=== PATIENT | female | born 1940 | race Native Hawaiian/Other Pacific Islander ===

== ENCOUNTER 2021-06-10 10:35 | Outpatient (CLI) | payer MEDICARE, OTHER | END 2021-06-10 10:36 | disposition home or self-care (01) | LOC: CSHEKG 10:35 | PROVIDERS: ATTEND Nurse Practitioner Family | DX: Z01.818 Encounter for other preprocedural examination (principal) | CPT/HCPCS: 93005; 93010 ==

== ENCOUNTER 2022-07-21 08:21 | Inpatient (IN) | payer MEDICARE, OTHER ==
[2022-07-21 10:51] LABS: #Eosinphils 0.1 10x3/uL (0.0-0.5); #Monocytes 0.4 10x3/uL (0.0-1.1); #Neutrophils 8.2 10x3/uL (1.5-8.4); %Basophils 0.2 % (0.0-2.0); %Eosinophils 0.5 % (0.0-6.0); %Lymphocytes 16.4 % (18.0-47.0); %Monocytes 3.6 % (0.0-10.0); %Neutrophils 78.6 % (40.0-75.0); Hemoglobin 13.6 g/dL (12.0-15.5); Mean Corpuscular HGB CONC 33.8 g/dL (32.0-36.0); Mean Corpuscular Hemoglobin 28.5 pg (27.0-33.0); Mean Corpuscular Volume 84.3 fl (81.6-98.3); Mean Platelet Volume 8.2 fl (7.4-10.4); Platelet Count 293 10x3/uL (150-450); RBC Distribution Width 16.2 % (11.5-14.5); Red Blood Cell (RBC) Count 4.77 10x6/uL (3.90-5.03); White Blood Cell (WBC) Count 10.4 10x3/uL (3.5-10.5)
[2022-07-21 11:00] LABS: PTT 31.9 sec (22.0-33.0); Prothrombin Time 10.4 sec (9.5-12.1)
[2022-07-21 11:07] LABS: ALT (SGPT) 12 U/L (8-55); AST (SGOT) 31 U/L (5-34); Albumin 3.5 g/dL (3.4-4.8); Alkaline Phosphatase 89 U/L (40-110); Anion Gap 14 mmol/L (10-20); BUN (Urea Nitrogen) 9 mg/dL (9.8-20.1); Bilirubin, Total 0.3 mg/dL (0.2-1.2); Calc. Creatinine Clearance 0 mL/min (70-130); Calcium 8.8 mg/dL (7.8-10.44); Carbon Dioxide 28 mmol/L (23-31); Chloride 91 mmol/L (98-107); Estimated GFR 90; Globulin 3.8 g/dL (2.4-3.5); Glucose 110 mg/dL (83-110); Potassium 4.9 mmol/L (3.5-5.1); Protein, Total 7.3 g/dL (5.8-8.1); Sodium 128 mmol/L (136-145)
[2022-07-21] MEDS ORDERED: Acetaminophen 650 MG Suppository PR PRN (13:49)
[2022-07-21] MEDS ORDERED: Acetaminophen 325 MG TAB PO PRN (13:49)
[2022-07-21] MEDS ORDERED: Ondansetron ODT 4 MG TAB PO PRN (13:49)
[2022-07-21] MEDS ORDERED: Ondansetron PF 4 MG/2 ML Vial IVP PRN (13:49)
[2022-07-21] MEDS ORDERED: Dextrose 5% in Water 1,000 ML IV PRN (18:09)
[2022-07-21] MEDS ORDERED: Insulin Regular 300 UNITS/3 ML VIAL SC PRN (18:09)
[2022-07-21] MEDS ORDERED: Dextrose 50% Abboject 50 ML SYRINGE SLOW IVP PRN (18:09)
[2022-07-22 05:19] LABS: #Basophils 0.1 10x3/uL (0.0-0.2); #Eosinphils 0.1 10x3/uL (0.0-0.5); #Monocytes 0.6 10x3/uL (0.0-1.1); #Neutrophils 8.6 10x3/uL (1.5-8.4); %Basophils 0.5 % (0.0-2.0); %Eosinophils 0.5 % (0.0-6.0); %Lymphocytes 14.4 % (18.0-47.0); %Monocytes 5.4 % (0.0-10.0); %Neutrophils 78.7 % (40.0-75.0); Mean Corpuscular HGB CONC 34.4 g/dL (32.0-36.0); Mean Corpuscular Hemoglobin 28.8 pg (27.0-33.0); Mean Corpuscular Volume 83.6 fl (81.6-98.3); Mean Platelet Volume 8.6 fl (7.4-10.4); Platelet Count 330 10x3/uL (150-450); RBC Distribution Width 16.2 % (11.5-14.5); Red Blood Cell (RBC) Count 4.52 10x6/uL (3.90-5.03); White Blood Cell (WBC) Count 10.9 10x3/uL (3.5-10.5)
[2022-07-22 05:28] LABS: Anion Gap 10 mmol/L (10-20); BUN (Urea Nitrogen) 12 mg/dL (9.8-20.1); Calc. Creatinine Clearance 56 mL/min (70-130); Calcium 8.5 mg/dL (7.8-10.44); Carbon Dioxide 29 mmol/L (23-31); Chloride 95 mmol/L (98-107); Estimated GFR 93; Glucose 107 mg/dL (83-110); Potassium 4.3 mmol/L (3.5-5.1); Sodium 130 mmol/L (136-145)
[2022-07-22] MEDS ORDERED: Iopamidol 300 61% 100 ML VIAL FS ONE (12:02)
[2022-07-22] MEDS: Insulin Regular 300 UNITS/3 ML VIAL SC PRN (18:09)
[2022-07-23 03:57] LABS: #Basophils 0.1 10x3/uL (0.0-0.2); #Monocytes 0.8 10x3/uL (0.0-1.1); #Neutrophils 11.3 10x3/uL (1.5-8.4); %Basophils 0.4 % (0.0-2.0); %Eosinophils 0.3 % (0.0-6.0); %Lymphocytes 8.1 % (18.0-47.0); %Monocytes 6.2 % (0.0-10.0); %Neutrophils 84.6 % (40.0-75.0); Hemoglobin 12.7 g/dL (12.0-15.5); Mean Corpuscular HGB CONC 34.3 g/dL (32.0-36.0); Mean Corpuscular Hemoglobin 28.8 pg (27.0-33.0); Mean Corpuscular Volume 83.9 fl (81.6-98.3); Mean Platelet Volume 8.4 fl (7.4-10.4); Platelet Count 328 10x3/uL (150-450); RBC Distribution Width 16.4 % (11.5-14.5); Red Blood Cell (RBC) Count 4.41 10x6/uL (3.90-5.03); White Blood Cell (WBC) Count 13.4 10x3/uL (3.5-10.5)
[2022-07-23 04:10] LABS: Anion Gap 10 mmol/L (10-20); BUN (Urea Nitrogen) 17 mg/dL (9.8-20.1); Calc. Creatinine Clearance 52 mL/min (70-130); Calcium 8.5 mg/dL (7.8-10.44); Carbon Dioxide 30 mmol/L (23-31); Chloride 97 mmol/L (98-107); Estimated GFR 92; Glucose 126 mg/dL (83-110); Potassium 4.4 mmol/L (3.5-5.1); Sodium 133 mmol/L (136-145)
[2022-07-23] MEDS: Sodium Chloride 1 GM TAB PO SCH ×3 (09:13→20:32)
[2022-07-23] MEDS: Insulin NPH Human Isophane 100 UNIT/ML (10 ML VIAL) SC SCH (09:13)
[2022-07-23] MEDS: Insulin Regular 300 UNITS/3 ML VIAL SC PRN (12:29)
[2022-07-23] MEDS: Melatonin 3 MG TAB PO SCH (20:32)
[2022-07-24 04:05] LABS: #Eosinphils 0.1 10x3/uL (0.0-0.5); #Monocytes 0.8 10x3/uL (0.0-1.1); #Neutrophils 8.5 10x3/uL (1.5-8.4); %Basophils 0.4 % (0.0-2.0); %Eosinophils 0.7 % (0.0-6.0); %Lymphocytes 12.3 % (18.0-47.0); Hemoglobin 12.1 g/dL (12.0-15.5); Mean Corpuscular HGB CONC 33.5 g/dL (32.0-36.0); Mean Corpuscular Hemoglobin 28.6 pg (27.0-33.0); Mean Corpuscular Volume 85.3 fl (81.6-98.3); Mean Platelet Volume 8.5 fl (7.4-10.4); Platelet Count 315 10x3/uL (150-450); RBC Distribution Width 16.9 % (11.5-14.5); Red Blood Cell (RBC) Count 4.23 10x6/uL (3.90-5.03); White Blood Cell (WBC) Count 10.8 10x3/uL (3.5-10.5)
[2022-07-24 04:19] LABS: Anion Gap 12 mmol/L (10-20); BUN (Urea Nitrogen) 15 mg/dL (9.8-20.1); Calc. Creatinine Clearance 55 mL/min (70-130); Calcium 8.6 mg/dL (7.8-10.44); Carbon Dioxide 29 mmol/L (23-31); Chloride 100 mmol/L (98-107); Estimated GFR 93; Glucose 148 mg/dL (83-110); Potassium 4.4 mmol/L (3.5-5.1); Sodium 137 mmol/L (136-145)
[2022-07-24] MEDS: Insulin NPH Human Isophane 100 UNIT/ML (10 ML VIAL) SC SCH (08:44)
[2022-07-24] MEDS: Sodium Chloride 1 GM TAB PO SCH ×3 (08:44→22:34)
[2022-07-24] MEDS: Melatonin 3 MG TAB PO SCH (22:34)
[2022-07-25 04:06] LABS: #Basophils 0.1 10x3/uL (0.0-0.2); #Eosinphils 0.1 10x3/uL (0.0-0.5); #Monocytes 0.6 10x3/uL (0.0-1.1); #Neutrophils 5.1 10x3/uL (1.5-8.4); %Basophils 0.7 % (0.0-2.0); %Eosinophils 1.1 % (0.0-6.0); %Lymphocytes 16.3 % (18.0-47.0); %Monocytes 8.5 % (0.0-10.0); %Neutrophils 72.8 % (40.0-75.0); Hemoglobin 11.8 g/dL (12.0-15.5); Mean Corpuscular HGB CONC 32.7 g/dL (32.0-36.0); Mean Corpuscular Hemoglobin 28.6 pg (27.0-33.0); Mean Corpuscular Volume 87.6 fl (81.6-98.3); Mean Platelet Volume 8.7 fl (7.4-10.4); Platelet Count 324 10x3/uL (150-450); RBC Distribution Width 17.6 % (11.5-14.5); Red Blood Cell (RBC) Count 4.12 10x6/uL (3.90-5.03)
[2022-07-25 04:18] LABS: Anion Gap 11 mmol/L (10-20); BUN (Urea Nitrogen) 18 mg/dL (9.8-20.1); Calc. Creatinine Clearance 54 mL/min (70-130); Calcium 8.7 mg/dL (7.8-10.44); Carbon Dioxide 30 mmol/L (23-31); Chloride 105 mmol/L (98-107); Estimated GFR 92; Glucose 124 mg/dL (83-110); Potassium 4.6 mmol/L (3.5-5.1); Sodium 141 mmol/L (136-145)
[2022-07-25] MEDS: Insulin NPH Human Isophane 100 UNIT/ML (10 ML VIAL) SC SCH (08:05)
[2022-07-25] MEDS: Sodium Chloride 1 GM TAB PO SCH ×2 (08:05→21:31)
[2022-07-25] MEDS: Melatonin 3 MG TAB PO SCH (21:23)
[2022-07-26 03:58] LABS: Anion Gap 10 mmol/L (10-20); BUN (Urea Nitrogen) 18 mg/dL (9.8-20.1); Calc. Creatinine Clearance 58 mL/min (70-130); Calcium 8.7 mg/dL (7.8-10.44); Carbon Dioxide 31 mmol/L (23-31); Chloride 104 mmol/L (98-107); Estimated GFR 94; Glucose 111 mg/dL (83-110); Potassium 4.3 mmol/L (3.5-5.1); Sodium 141 mmol/L (136-145)
[2022-07-26] MEDS ORDERED: Rocuronium Bromide 10 MG/ML (10ML VIAL) ONE (08:00)
[2022-07-26] MEDS: Sodium Chloride 1 GM TAB PO SCH (08:27)
[2022-07-26] MEDS: Insulin NPH Human Isophane 100 UNIT/ML (10 ML VIAL) SC SCH (08:27)
[2022-07-26] MEDS ORDERED: DISCONTINUE PREVIOUS NARCOTIC PAIN MEDICATIONS AND BENZODIAZEPINES FS SCH (22:30)
[2022-07-26] MEDS ORDERED: Propofol 1,000 MG/100 ML VIAL IV PRN (22:30)
[2022-07-26] MEDS ORDERED: Morphine 2 MG/ML VIAL SLOW IVP PRN (22:30)
[2022-07-26] MEDS ORDERED: Propofol BOLUS 1,000 MG/100 ML VIAL IV PRN (22:30)
[2022-07-26] MEDS ORDERED: Lorazepam 2 MG/ML VIAL SLOW IVP PRN (22:30)
[2022-07-26] MEDS ORDERED: Fentanyl BOLUS 250 ML IVPB PRN (22:30)
[2022-07-26] MEDS ORDERED: Fentanyl 100 MCG/2 ML VIAL SLOW IVP PRN (23:27)
[2022-07-26] MEDS ORDERED: Ventilator Sedation Protocol 1 EACH FS SCH (23:30)
[2022-07-26] MEDS ORDERED: Piperacillin/Tazobactam 3.375 GM in Sodium Chloride 0.9% 100 ML IVPB SCH (23:45)
[2022-07-27] MEDS ORDERED: Dextrose 5% in Water 1,000 ML IV PRN (00:52)
[2022-07-27] MEDS ORDERED: Dextrose 50% Abboject 50 ML SYRINGE SLOW IVP PRN (00:52)
[2022-07-27] MEDS ORDERED: NOREPINEPHRINE 8 MG/250 ML-D5W 250 ML ONE (02:10)
[2022-07-27] MEDS ORDERED: NOREPINEPHRINE 8 MG/250 ML-D5W 250 ML IVPB SCH (02:15)
[2022-07-27] MEDS: FENTANYL 2,000MCG/100-0.9%NACL 100 ML IVPB SCH ×2 (02:46→22:57)
[2022-07-27] MEDS: Sodium Chloride 1 GM TAB PO SCH (03:42)
[2022-07-27] MEDS: Melatonin 3 MG TAB PO SCH (03:42)
[2022-07-27 03:56] LABS: #Basophils 0.1 10x3/uL (0.0-0.2); #Monocytes 0.6 10x3/uL (0.0-1.1); #Neutrophils 12.4 10x3/uL (1.5-8.4); %Basophils 0.4 % (0.0-2.0); %Eosinophils 0.2 % (0.0-6.0); %Lymphocytes 6.3 % (18.0-47.0); %Monocytes 4.4 % (0.0-10.0); %Neutrophils 88.4 % (40.0-75.0); Hemoglobin 12.1 g/dL (12.0-15.5); Mean Corpuscular HGB CONC 32.7 g/dL (32.0-36.0); Mean Corpuscular Hemoglobin 28.7 pg (27.0-33.0); Mean Corpuscular Volume 87.9 fl (81.6-98.3); Mean Platelet Volume 8.4 fl (7.4-10.4); Platelet Count 306 10x3/uL (150-450); RBC Distribution Width 17.9 % (11.5-14.5); Red Blood Cell (RBC) Count 4.21 10x6/uL (3.90-5.03)
[2022-07-27 04:09] LABS: Anion Gap 12 mmol/L (10-20); BUN (Urea Nitrogen) 23 mg/dL (9.8-20.1); Calc. Creatinine Clearance 48 mL/min (70-130); Calcium 8.8 mg/dL (7.8-10.44); Carbon Dioxide 29 mmol/L (23-31); Chloride 103 mmol/L (98-107); Estimated GFR 90; Glucose 152 mg/dL (83-110); Magnesium 2.1 mg/dL (1.6-2.6); Potassium 4.3 mmol/L (3.5-5.1); Sodium 140 mmol/L (136-145)
[2022-07-27 04:52] LABS: ALV-art Gradient 120.025 mmHg (0-20); Actual Bicarbonate (HCO3a) 31.2 mEq/L (22-28); Base Excess (BEa) 6.1 mEq/L (-2.0 to +3.0); CO2 Tension 47.1 mmHg (35.0-45.0); Calcium, Ionized (arterial) 1.15 mmol/L (1.12-1.30); Carboxyhemoglobin (COHb) 0.3 gm% (0.0-3.0); Critical Notified By: CP.PH; Hemoglobin (Hb) 12.5 g/dL (12.0-16.0); O2 Tension (PaO2), arterial 106.3 mmHg (> 60.0); Potassium - ABG Lab 4.2 mmol/L (3.70-5.30); Puncture Site LBA; RapidComm Collect By CP.PH; pH, Arterial 7.44 (7.35-7.45)
[2022-07-27] MEDS: Piperacillin/Tazobactam 3.375 GM in Sodium Chloride 0.9% 100 ML IVPB SCH ×2 (08:20→16:03)
[2022-07-27] MEDS: HumaLOG 300 UNITS/3 ML VIAL SC PRN (16:50)
[2022-07-27 17:12] LABS: Actual Bicarbonate (HCO3a) 32.5 mEq/L (22-28); Base Excess (BEa) 7.5 mEq/L (-2.0 to +3.0); CO2 Tension 47.7 mmHg (35.0-45.0); Calcium, Ionized (arterial) 1.16 mmol/L (1.12-1.30); Carboxyhemoglobin (COHb) 0.3 gm% (0.0-3.0); Hemoglobin (Hb) 11.4 g/dL (12.0-16.0); O2 Tension (PaO2), arterial 139.9 mmHg (> 60.0); Puncture Site LBA; pH, Arterial 7.45 (7.35-7.45)
[2022-07-27 17:18] LABS: ALV-art Gradient 85.675 mmHg (0-20)
[2022-07-28] MEDS: Piperacillin/Tazobactam 3.375 GM in Sodium Chloride 0.9% 100 ML IVPB SCH ×4 (00:01→23:44)
[2022-07-28 04:46] LABS: #Eosinphils 0.1 10x3/uL (0.0-0.5); #Monocytes 0.7 10x3/uL (0.0-1.1); #Neutrophils 9.7 10x3/uL (1.5-8.4); %Basophils 0.3 % (0.0-2.0); %Eosinophils 0.5 % (0.0-6.0); %Lymphocytes 11.5 % (18.0-47.0); %Neutrophils 81.1 % (40.0-75.0); Hemoglobin 9.8 g/dL (12.0-15.5); Mean Corpuscular HGB CONC 32.9 g/dL (32.0-36.0); Mean Corpuscular Hemoglobin 28.7 pg (27.0-33.0); Mean Corpuscular Volume 87.1 fl (81.6-98.3); Platelet Count 249 10x3/uL (150-450); RBC Distribution Width 17.9 % (11.5-14.5); Red Blood Cell (RBC) Count 3.42 10x6/uL (3.90-5.03)
[2022-07-28 04:47] LABS: Actual Bicarbonate (HCO3a) 31.6 mEq/L (22-28); Base Excess (BEa) 7.1 mEq/L (-2.0 to +3.0); CO2 Tension 44.8 mmHg (35.0-45.0); Calcium, Ionized (arterial) 1.15 mmol/L (1.12-1.30); Carboxyhemoglobin (COHb) 0.3 gm% (0.0-3.0); Critical Notified By: CP.PH; Hemoglobin (Hb) 10.4 g/dL (12.0-16.0); O2 Tension (PaO2), arterial 89.4 mmHg (> 60.0); Potassium - ABG Lab 3.8 mmol/L (3.70-5.30); Puncture Site LRA; RapidComm Collect By CP.PH; pH, Arterial 7.47 (7.35-7.45)
[2022-07-28 04:57] LABS: ALT (SGPT) 13 U/L (8-55); AST (SGOT) 23 U/L (5-34); Albumin 2.8 g/dL (3.4-4.8); Alkaline Phosphatase 60 U/L (40-110); Anion Gap 11 mmol/L (10-20); BUN (Urea Nitrogen) 21 mg/dL (9.8-20.1); Bilirubin, Total 0.4 mg/dL (0.2-1.2); Calc. Creatinine Clearance 38 mL/min (70-130); Calcium 8.5 mg/dL (7.8-10.44); Carbon Dioxide 30 mmol/L (23-31); Chloride 106 mmol/L (98-107); Estimated GFR 88; Globulin 3.2 g/dL (2.4-3.5); Glucose 177 mg/dL (83-110); Potassium 3.7 mmol/L (3.5-5.1); Sodium 143 mmol/L (136-145)
[2022-07-28] MEDS ORDERED: Rocuronium Bromide 10 MG/ML (10ML VIAL) ONE (06:22)
[2022-07-28] MEDS ORDERED: Midazolam HCl 2 mg/2 ml Vial ONE (06:28)
[2022-07-28] MEDS ORDERED: Fentanyl 100 MCG/2 ML VIAL ONE (06:30)
[2022-07-28] MEDS ORDERED: Lidocaine 1% w/Epinephrine 1:100K 30 ML VIAL ONE (06:32)
[2022-07-28] MEDS ORDERED: Ketamine 50 MG/ML (10ML VIAL) ONE (07:06)
[2022-07-28] MEDS: Pantoprazole 40 MG VIAL IVP SCH (08:44)
[2022-07-28] MEDS: FENTANYL 2,000MCG/100-0.9%NACL 100 ML IVPB SCH (12:44)
[2022-07-28] MEDS: HumaLOG 300 UNITS/3 ML VIAL SC PRN (13:06)
[2022-07-29 04:24] LABS: MDiff Complete? YES
[2022-07-29 04:32] LABS: ALT (SGPT) 14 U/L (8-55); AST (SGOT) 22 U/L (5-34); Albumin 2.8 g/dL (3.4-4.8); Alkaline Phosphatase 60 U/L (40-110); Anion Gap 11 mmol/L (10-20); BUN (Urea Nitrogen) 16 mg/dL (9.8-20.1); Bilirubin, Total 0.5 mg/dL (0.2-1.2); Calc. Creatinine Clearance 37 mL/min (70-130); Calcium 8.5 mg/dL (7.8-10.44); Carbon Dioxide 28 mmol/L (23-31); Chloride 109 mmol/L (98-107); Estimated GFR 89; Globulin 3.1 g/dL (2.4-3.5); Glucose 131 mg/dL (83-110); Potassium 3.6 mmol/L (3.5-5.1); Protein, Total 5.9 g/dL (5.8-8.1); Sodium 144 mmol/L (136-145)
[2022-07-29 04:36] LABS: Hemoglobin 9.3 g/dL (12.0-15.5); Mean Corpuscular HGB CONC 33.3 g/dL (32.0-36.0); Mean Corpuscular Hemoglobin 29.5 pg (27.0-33.0); Mean Corpuscular Volume 88.6 fl (81.6-98.3); Mean Platelet Volume 9.5 fl (7.4-10.4); Platelet Count 223 10x3/uL (150-450); RBC Distribution Width 18.4 % (11.5-14.5); Red Blood Cell (RBC) Count 3.15 10x6/uL (3.90-5.03); White Blood Cell (WBC) Count 10.6 10x3/uL (3.5-10.5)
[2022-07-29] MEDS: FENTANYL 2,000MCG/100-0.9%NACL 100 ML IVPB SCH (05:03)
[2022-07-29 05:57] LABS: Band 30 % (5-11); Lymphocytes 14 % (21-51); Monocytes 11 % (0-10); Neutrophil 45 % (42-75)
[2022-07-29 06:02] LABS: Anisocytosis SLIGHT = 6-15 cells (100X) (0-5/hpf); Hypochromia SLIGHT = 6-15 cells (100X) (0-5/hpf); Microcytosis SLIGHT = 6-15 cells (100X) (0-5/hpf); Platelet Morphology Comment Appears Adequate
[2022-07-29] MEDS: Piperacillin/Tazobactam 3.375 GM in Sodium Chloride 0.9% 100 ML IVPB SCH ×3 (08:03→23:45)
[2022-07-29] MEDS: Pantoprazole 40 MG VIAL IVP SCH (08:04)
[2022-07-29] MEDS: HumaLOG 300 UNITS/3 ML VIAL SC PRN (12:38)
[2022-07-29] MEDS: Acetaminophen 650 MG/20.3 ML UDCUP PER TUBE PRN ×2 (14:19→23:54)
[2022-07-29] MEDS ORDERED: Vancomycin HCl 500 MG in Sodium Chloride 0.9% 100 ML IVPB SCH (17:30)
[2022-07-30 04:24] LABS: Mean Corpuscular HGB CONC 32.7 g/dL (32.0-36.0); Mean Corpuscular Hemoglobin 28.8 pg (27.0-33.0); Mean Corpuscular Volume 88.1 fl (81.6-98.3); Mean Platelet Volume 9.5 fl (7.4-10.4); Platelet Count 205 10x3/uL (150-450); RBC Distribution Width 17.9 % (11.5-14.5); Red Blood Cell (RBC) Count 3.12 10x6/uL (3.90-5.03); White Blood Cell (WBC) Count 9.9 10x3/uL (3.5-10.5)
[2022-07-30 04:29] LABS: ALT (SGPT) 21 U/L (8-55); AST (SGOT) 31 U/L (5-34); Albumin 2.8 g/dL (3.4-4.8); Alkaline Phosphatase 72 U/L (40-110); Anion Gap 11 mmol/L (10-20); BUN (Urea Nitrogen) 16 mg/dL (9.8-20.1); Bilirubin, Total 0.3 mg/dL (0.2-1.2); Calc. Creatinine Clearance 45 mL/min (70-130); Calcium 8.6 mg/dL (7.8-10.44); Carbon Dioxide 28 mmol/L (23-31); Chloride 113 mmol/L (98-107); Estimated GFR 92; Globulin 3.2 g/dL (2.4-3.5); Glucose 152 mg/dL (83-110); Potassium 3.1 mmol/L (3.5-5.1); Sodium 149 mmol/L (136-145)
[2022-07-30 04:51] LABS: MDiff Complete? YES
[2022-07-30 04:55] LABS: Band 39 % (5-11); Lymphocytes 6 % (21-51); Monocytes 5 % (0-10); Neutrophil 50 % (42-75)
[2022-07-30 04:56] LABS: Anisocytosis SLIGHT = 6-15 cells (100X) (0-5/hpf); Hypochromia SLIGHT = 6-15 cells (100X) (0-5/hpf); Microcytosis SLIGHT = 6-15 cells (100X) (0-5/hpf); Platelet Morphology Comment Appears Adequate
[2022-07-30] MEDS: Vancomycin HCl 500 MG in Sodium Chloride 0.9% 100 ML IVPB SCH ×2 (08:30→20:38)
[2022-07-30] MEDS: Piperacillin/Tazobactam 3.375 GM in Sodium Chloride 0.9% 100 ML IVPB SCH ×2 (08:31→16:29)
[2022-07-30] MEDS: Pantoprazole 40 MG VIAL IVP SCH (08:32)
[2022-07-30] MEDS: HumaLOG 300 UNITS/3 ML VIAL SC PRN ×3 (13:11→21:39)
[2022-07-30] MEDS ORDERED: Haloperidol Lactate 5 MG/ML VIAL SLOW IVP SCH (15:00)
[2022-07-30] MEDS: Acetaminophen 650 MG/20.3 ML UDCUP PER TUBE PRN (15:47)
[2022-07-30] MEDS: Dextrose 5% in Water 1,000 ML IV SCH (16:29)
[2022-07-30 17:45] LABS: Bilirubin Neg (Negative); Blood, Urine 25 (Negative); Clarity Clear (Clear); Glucose, Urine (Dipstick) Normal (Negative); Ketone, Urine Negative (Negative); Leukocyte Negative (Negative); Nitrite Negative (Negative); Protein, Urine (Dipstick) 100 mg/dl (Neg-Trace); Urobilinogen Normal mg/dL (Less than 2); pH, Urine 6.5 (5.0-9.0)
[2022-07-30 17:55] LABS: CAUTI Indications for Culture Fever or rigors; WBC/HPF 0-3 HPF (0-3)
[2022-07-30 17:56] LABS: Bacteria/HPF 1+ HPF (None Seen); Squamous Epithelial 0-3 HPF (0-3)
[2022-07-30 17:58] LABS: Urine Culture Reflex No No
[2022-07-31] MEDS: Piperacillin/Tazobactam 3.375 GM in Sodium Chloride 0.9% 100 ML IVPB SCH ×4 (00:53→23:35)
[2022-07-31] MEDS: HumaLOG 300 UNITS/3 ML VIAL SC PRN ×3 (02:26→23:34)
[2022-07-31 03:31] LABS: Mean Corpuscular HGB CONC 31.8 g/dL (32.0-36.0); Mean Corpuscular Hemoglobin 28.4 pg (27.0-33.0); Mean Corpuscular Volume 89.2 fl (81.6-98.3); Mean Platelet Volume 9.8 fl (7.4-10.4); Platelet Count 234 10x3/uL (150-450); RBC Distribution Width 18.1 % (11.5-14.5); Red Blood Cell (RBC) Count 3.52 10x6/uL (3.90-5.03); White Blood Cell (WBC) Count 13.4 10x3/uL (3.5-10.5)
[2022-07-31 03:35] LABS: MDiff Complete? YES
[2022-07-31 03:47] LABS: Anion Gap 12 mmol/L (10-20); BUN (Urea Nitrogen) 16 mg/dL (9.8-20.1); Calc. Creatinine Clearance 46 mL/min (70-130); Calcium 8.4 mg/dL (7.8-10.44); Carbon Dioxide 27 mmol/L (23-31); Chloride 110 mmol/L (98-107); Estimated GFR 90; Glucose 207 mg/dL (83-110); Potassium 3.1 mmol/L (3.5-5.1); Sodium 146 mmol/L (136-145)
[2022-07-31 04:26] LABS: Band 31 % (5-11); Lymphocytes 6 % (21-51); Monocytes 2 % (0-10); Neutrophil 60 % (42-75)
[2022-07-31 04:28] LABS: Anisocytosis SLIGHT = 6-15 cells (100X) (0-5/hpf); Hypochromia SLIGHT = 6-15 cells (100X) (0-5/hpf); Microcytosis SLIGHT = 6-15 cells (100X) (0-5/hpf); Platelet Morphology Comment Appears Adequate
[2022-07-31] MEDS: Dextrose 5% in Water 1,000 ML IV SCH ×2 (04:47→18:20)
[2022-07-31 07:44] LABS: Vancomycin, Trough 10.1 ug/mL
[2022-07-31] MEDS: Vancomycin HCl 750 MG in Sodium Chloride 0.9% 100 ML IVPB SCH ×2 (08:56→20:22)
[2022-07-31] MEDS: Acetaminophen 650 MG/20.3 ML UDCUP PER TUBE PRN (08:57)
[2022-07-31] MEDS: Pantoprazole 40 MG VIAL IVP SCH (08:57)
[2022-07-31] MEDS: Scopolamine 1.5 mg/72 hour Patch TD SCH (12:09)
[2022-08-01 03:40] LABS: Hemoglobin 9.9 g/dL (12.0-15.5); Mean Corpuscular Hemoglobin 28.8 pg (27.0-33.0); Mean Corpuscular Volume 87.2 fl (81.6-98.3); Platelet Count 217 10x3/uL (150-450); RBC Distribution Width 17.9 % (11.5-14.5); Red Blood Cell (RBC) Count 3.44 10x6/uL (3.90-5.03); White Blood Cell (WBC) Count 6.8 10x3/uL (3.5-10.5)
[2022-08-01 03:51] LABS: Anion Gap 11 mmol/L (10-20); BUN (Urea Nitrogen) 10 mg/dL (9.8-20.1); Calc. Creatinine Clearance 51 mL/min (70-130); Carbon Dioxide 28 mmol/L (23-31); Chloride 103 mmol/L (98-107); Estimated GFR 92; Glucose 179 mg/dL (83-110); Potassium 3.1 mmol/L (3.5-5.1); Sodium 139 mmol/L (136-145)
[2022-08-01 04:01] LABS: MDiff Complete? YES
[2022-08-01 04:06] LABS: Band 31 % (5-11); Lymphocytes 9 % (21-51); Monocytes 2 % (0-10); Neutrophil 58 % (42-75)
[2022-08-01 04:08] LABS: Anisocytosis SLIGHT = 6-15 cells (100X) (0-5/hpf); Hypochromia SLIGHT = 6-15 cells (100X) (0-5/hpf); Microcytosis SLIGHT = 6-15 cells (100X) (0-5/hpf); Platelet Morphology Comment Appears Adequate; Toxic Granulation SLIGHT
[2022-08-01] MEDS ORDERED: Acetaminophen 650 MG/20.3 ML UDCUP ONE (08:54)
[2022-08-01] MEDS: Dextrose 5% in Water 1,000 ML IV SCH ×2 (09:10→21:21)
[2022-08-01] MEDS: Vancomycin HCl 750 MG in Sodium Chloride 0.9% 100 ML IVPB SCH ×2 (09:11→20:08)
[2022-08-01] MEDS: Acetaminophen 650 MG/20.3 ML UDCUP PER TUBE PRN ×2 (09:11→20:44)
[2022-08-01] MEDS: Piperacillin/Tazobactam 3.375 GM in Sodium Chloride 0.9% 100 ML IVPB SCH ×2 (09:11→15:48)
[2022-08-01] MEDS: Pantoprazole 40 MG VIAL IVP SCH (09:12)
[2022-08-01] MEDS: HumaLOG 300 UNITS/3 ML VIAL SC PRN ×3 (12:00→20:37)
[2022-08-01 19:06] LABS: Vancomycin, Trough 13.7 ug/mL
[2022-08-02] MEDS: Piperacillin/Tazobactam 3.375 GM in Sodium Chloride 0.9% 100 ML IVPB SCH ×3 (00:28→16:38)
[2022-08-02 03:36] LABS: Hemoglobin 9.5 g/dL (12.0-15.5); Mean Corpuscular HGB CONC 33.2 g/dL (32.0-36.0); Mean Corpuscular Hemoglobin 28.4 pg (27.0-33.0); Mean Corpuscular Volume 85.6 fl (81.6-98.3); Mean Platelet Volume 9.6 fl (7.4-10.4); Platelet Count 203 10x3/uL (150-450); RBC Distribution Width 17.5 % (11.5-14.5); Red Blood Cell (RBC) Count 3.34 10x6/uL (3.90-5.03); White Blood Cell (WBC) Count 9.5 10x3/uL (3.5-10.5)
[2022-08-02 03:47] LABS: Anion Gap 10 mmol/L (10-20); BUN (Urea Nitrogen) 11 mg/dL (9.8-20.1); Calc. Creatinine Clearance 53 mL/min (70-130); Calcium 7.7 mg/dL (7.8-10.44); Carbon Dioxide 29 mmol/L (23-31); Chloride 99 mmol/L (98-107); Estimated GFR 93; Glucose 134 mg/dL (83-110); Potassium 3.3 mmol/L (3.5-5.1); Sodium 135 mmol/L (136-145)
[2022-08-02 04:04] LABS: MDiff Complete? YES
[2022-08-02 04:15] LABS: Band 39 % (5-11); Eosinophils 1 % (0-10); Lymphocytes 7 % (21-51); Monocytes 1 % (0-10); Neutrophil 52 % (42-75)
[2022-08-02 04:19] LABS: Anisocytosis SLIGHT = 6-15 cells (100X) (0-5/hpf); Microcytosis SLIGHT = 6-15 cells (100X) (0-5/hpf); Platelet Morphology Comment Appears Adequate; Toxic Granulation SLIGHT
[2022-08-02] MEDS: Pantoprazole 40 MG VIAL IVP SCH (08:29)
[2022-08-02 10:59] LABS: Vancomycin, Trough 14.4 ug/mL
[2022-08-02] MEDS: Vancomycin HCl 750 MG in Sodium Chloride 0.9% 100 ML IVPB SCH ×2 (12:07→21:10)
[2022-08-02] MEDS: Dextrose 5% in Water 1,000 ML IV SCH (12:07)
[2022-08-02] MEDS: Acetaminophen 650 MG/20.3 ML UDCUP PER TUBE PRN (17:28)
[2022-08-03] MEDS: Dextrose 5% in Water 1,000 ML IV SCH ×2 (00:22→15:16)
[2022-08-03] MEDS: Piperacillin/Tazobactam 3.375 GM in Sodium Chloride 0.9% 100 ML IVPB SCH ×4 (00:22→23:44)
[2022-08-03] MEDS: Vancomycin HCl 750 MG in Sodium Chloride 0.9% 100 ML IVPB SCH (08:46)
[2022-08-03] MEDS: Pantoprazole 40 MG VIAL IVP SCH (08:47)
[2022-08-03] MEDS ORDERED: TOBRAMYCIN 300 MG/5 ML AMP (INHALATION) IH SCH ×2 (09:00→18:30)
[2022-08-03 09:33] LABS: Vancomycin, Trough 14.4 ug/mL
[2022-08-03] MEDS ORDERED: SODIUM CHLORIDE 0.9% IVPB SCH (10:00)
[2022-08-03] MEDS ORDERED: TOBRAMYCIN SULFATE IVPB SCH (10:00)
[2022-08-03] MEDS: TOBRAMYCIN SULFATE IVPB SCH (10:58)
[2022-08-03] MEDS: SODIUM CHLORIDE 0.9% IVPB SCH (10:58)
[2022-08-03] MEDS: methylPREDNISolone Sod Succ 40 MG VIAL IVP SCH ×3 (11:01→23:44)
[2022-08-03] MEDS: Scopolamine 1.5 mg/72 hour Patch TD SCH (11:02)
[2022-08-03] MEDS: Ipratropium/Albuterol 3 ML NEB NEB SCH ×3 (12:20→21:20)
[2022-08-03] MEDS: HumaLOG 300 UNITS/3 ML VIAL SC PRN ×2 (17:45→20:09)
[2022-08-04] MEDS: HumaLOG 300 UNITS/3 ML VIAL SC PRN ×5 (00:05→22:35)
[2022-08-04] MEDS: Ipratropium/Albuterol 3 ML NEB NEB SCH ×7 (00:05→23:50)
[2022-08-04] MEDS: Dextrose 5% in Water 1,000 ML IV SCH ×2 (03:42→16:28)
[2022-08-04 04:54] LABS: Hemoglobin 9.2 g/dL (12.0-15.5); Mean Corpuscular HGB CONC 33.5 g/dL (32.0-36.0); Mean Corpuscular Hemoglobin 28.2 pg (27.0-33.0); Mean Corpuscular Volume 84.4 fl (81.6-98.3); Mean Platelet Volume 10.2 fl (7.4-10.4); Platelet Count 225 10x3/uL (150-450); RBC Distribution Width 17.3 % (11.5-14.5); Red Blood Cell (RBC) Count 3.26 10x6/uL (3.90-5.03); White Blood Cell (WBC) Count 8.6 10x3/uL (3.5-10.5)
[2022-08-04 05:00] LABS: Anion Gap 12 mmol/L (10-20); BUN (Urea Nitrogen) 10 mg/dL (9.8-20.1); Calc. Creatinine Clearance 58 mL/min (70-130); Calcium 7.9 mg/dL (7.8-10.44); Carbon Dioxide 27 mmol/L (23-31); Chloride 97 mmol/L (98-107); Estimated GFR 92; Glucose 229 mg/dL (83-110); Potassium 3.8 mmol/L (3.5-5.1); Sodium 132 mmol/L (136-145)
[2022-08-04 05:14] LABS: MDiff Complete? YES
[2022-08-04 05:20] LABS: Band 31 % (5-11); Lymphocytes 3 % (21-51); Neutrophil 66 % (42-75)
[2022-08-04 05:22] LABS: Platelet Morphology Comment Appears Adequate; RBC Morphology Normal
[2022-08-04] MEDS: methylPREDNISolone Sod Succ 40 MG VIAL IVP SCH ×3 (05:31→21:37)
[2022-08-04] MEDS: Piperacillin/Tazobactam 3.375 GM in Sodium Chloride 0.9% 100 ML IVPB SCH ×3 (08:17→23:25)
[2022-08-04] MEDS: Pantoprazole 40 MG VIAL IVP SCH (08:18)
[2022-08-04] MEDS: SODIUM CHLORIDE 0.9% IVPB SCH (10:46)
[2022-08-04] MEDS: TOBRAMYCIN SULFATE IVPB SCH (10:46)
[2022-08-05] MEDS: HumaLOG 300 UNITS/3 ML VIAL SC PRN ×6 (02:14→22:13)
[2022-08-05] MEDS: Ipratropium/Albuterol 3 ML NEB NEB SCH ×6 (03:45→23:20)
[2022-08-05] MEDS: Dextrose 5% in Water 1,000 ML IV SCH ×2 (05:20→16:18)
[2022-08-05] MEDS: Piperacillin/Tazobactam 3.375 GM in Sodium Chloride 0.9% 100 ML IVPB SCH ×3 (08:45→23:00)
[2022-08-05] MEDS: SODIUM CHLORIDE 0.9% IVPB SCH (09:45)
[2022-08-05] MEDS: TOBRAMYCIN SULFATE IVPB SCH (09:45)
[2022-08-05] MEDS: Lansoprazole 3 MG/ML ORAL SUSPENSION PER TUBE SCH (09:59)
[2022-08-05 15:24] LABS: Ref Lab Test Ordered AEROBIC SUSCEPABILIT; Reference Lab Name LABCORP
[2022-08-05] MEDS: Saccharomyces boulardii 250 MG CAP PO SCH (20:00)
[2022-08-06] MEDS: Ipratropium/Albuterol 3 ML NEB NEB SCH ×6 (03:10→23:00)
[2022-08-06 03:55] LABS: #Monocytes 0.7 10x3/uL (0.0-1.1); %Basophils 0.1 % (0.0-2.0); %Lymphocytes 7.7 % (18.0-47.0); %Monocytes 5.6 % (0.0-10.0); %Neutrophils 84.3 % (40.0-75.0); Hemoglobin 8.2 g/dL (12.0-15.5); Mean Corpuscular Hemoglobin 28.5 pg (27.0-33.0); Mean Corpuscular Volume 83.7 fl (81.6-98.3); Mean Platelet Volume 10.3 fl (7.4-10.4); Platelet Count 320 10x3/uL (150-450); RBC Distribution Width 16.9 % (11.5-14.5); Red Blood Cell (RBC) Count 2.88 10x6/uL (3.90-5.03); White Blood Cell (WBC) Count 13.1 10x3/uL (3.5-10.5)
[2022-08-06 04:09] LABS: Anion Gap 11 mmol/L (10-20); BUN (Urea Nitrogen) 14 mg/dL (9.8-20.1); Calc. Creatinine Clearance 64 mL/min (70-130); Calcium 7.7 mg/dL (7.8-10.44); Carbon Dioxide 29 mmol/L (23-31); Chloride 92 mmol/L (98-107); Estimated GFR 94; Glucose 198 mg/dL (83-110); Potassium 4.6 mmol/L (3.5-5.1); Sodium 127 mmol/L (136-145)
[2022-08-06] MEDS: TOBRAMYCIN SULFATE IVPB SCH (09:35)
[2022-08-06] MEDS: SODIUM CHLORIDE 0.9% IVPB SCH (09:35)
[2022-08-06] MEDS: Lansoprazole 3 MG/ML ORAL SUSPENSION PER TUBE SCH (09:35)
[2022-08-06] MEDS: Scopolamine 1.5 mg/72 hour Patch TD SCH (09:38)
[2022-08-06] MEDS: Saccharomyces boulardii 250 MG CAP PO SCH ×2 (09:39→20:23)
[2022-08-06] MEDS ORDERED: Sodium Chloride 0.9% 100 ML ONE (09:39)
[2022-08-06] MEDS: Piperacillin/Tazobactam 3.375 GM in Sodium Chloride 0.9% 100 ML IVPB SCH ×2 (09:40→15:34)
[2022-08-06] MEDS: HumaLOG 300 UNITS/3 ML VIAL SC PRN ×2 (12:59→20:23)
[2022-08-07] MEDS: Piperacillin/Tazobactam 3.375 GM in Sodium Chloride 0.9% 100 ML IVPB SCH ×2 (00:13→08:05)
[2022-08-07] MEDS: HumaLOG 300 UNITS/3 ML VIAL SC PRN ×3 (00:28→12:00)
[2022-08-07] MEDS: Ipratropium/Albuterol 3 ML NEB NEB SCH ×3 (03:47→10:49)
[2022-08-07 04:16] LABS: #Monocytes 0.6 10x3/uL (0.0-1.1); #Neutrophils 6.6 10x3/uL (1.5-8.4); %Basophils 0.1 % (0.0-2.0); %Eosinophils 0.2 % (0.0-6.0); %Lymphocytes 8.7 % (18.0-47.0); %Monocytes 7.6 % (0.0-10.0); %Neutrophils 78.6 % (40.0-75.0); Hemoglobin 7.8 g/dL (12.0-15.5); Mean Corpuscular HGB CONC 33.3 g/dL (32.0-36.0); Mean Corpuscular Hemoglobin 28.1 pg (27.0-33.0); Mean Corpuscular Volume 84.2 fl (81.6-98.3); Mean Platelet Volume 11.7 fl (7.4-10.4); Platelet Count 170 10x3/uL (150-450); RBC Distribution Width 17.2 % (11.5-14.5); Red Blood Cell (RBC) Count 2.78 10x6/uL (3.90-5.03); White Blood Cell (WBC) Count 8.5 10x3/uL (3.5-10.5)
[2022-08-07 04:29] LABS: ALT (SGPT) 29 U/L (8-55); AST (SGOT) 34 U/L (5-34); Albumin 2.2 g/dL (3.4-4.8); Alkaline Phosphatase 62 U/L (40-110); Bilirubin, Direct 0.1 mg/dL (0.1-0.3); Bilirubin, Total 0.2 mg/dL (0.2-1.2); Phosphorus 2.8 mg/dL (2.3-4.7); Protein, Total 4.9 g/dL (5.8-8.1)
[2022-08-07 04:30] LABS: Anion Gap 11 mmol/L (10-20); BUN (Urea Nitrogen) 14 mg/dL (9.8-20.1); Calc. Creatinine Clearance 70 mL/min (70-130); Calcium 7.7 mg/dL (7.8-10.44); Carbon Dioxide 31 mmol/L (23-31); Chloride 95 mmol/L (98-107); Estimated GFR 95; Glucose 149 mg/dL (83-110); Potassium 4.6 mmol/L (3.5-5.1); Sodium 132 mmol/L (136-145)
[2022-08-07 06:16] VITALS: BMI 21.9
[2022-08-07] MEDS: Saccharomyces boulardii 250 MG CAP PO SCH (08:06)
[2022-08-07] MEDS: Lansoprazole 3 MG/ML ORAL SUSPENSION PER TUBE SCH (08:06)
[2022-08-07] MEDS: TOBRAMYCIN SULFATE IVPB SCH (10:55)
[2022-08-07] MEDS: SODIUM CHLORIDE 0.9% IVPB SCH (10:55)
[2022-08-07 12:06] VITALS: TEMP 97.8
[2022-08-07 14:18] VITALS: BP 105/64
== END 2022-08-07 14:58 | DRG 166 ==
LOC: CSHERS 08:21 → CSHTELE 16:31 → CSHICU 07-26 22:00
PROVIDERS: ADMIT Internal Medicine; ATTEND Internal Medicine
PROC: 0BH17EZ Insertion of Endotracheal Airway into Trachea, Via Natural or Artificial Opening (ICD-10-PCS; principal; 2022-07-26)
PROC: 5A1955Z Respiratory Ventilation, Greater than 96 Consecutive Hours (ICD-10-PCS; 2022-07-26)
PROC: 06HY33Z Insertion of Infusion Device into Lower Vein, Percutaneous Approach (ICD-10-PCS; 2022-07-26)
PROC: 3E043XZ Introduction of Vasopressor into Central Vein, Percutaneous Approach (ICD-10-PCS; 2022-07-27)
PROC: 0WQ6XZ2 Repair Neck, Stoma, External Approach (ICD-10-PCS; 2022-07-28)
PROC: 0BB10ZZ Excision of Trachea, Open Approach (ICD-10-PCS; 2022-07-28)
PROC: 0B21XFZ Change Tracheostomy Device in Trachea, External Approach (ICD-10-PCS; 2022-07-28)
DX: J95.09 Other tracheostomy complication (principal); A41.52 Sepsis due to Pseudomonas; J18.9 Pneumonia, unspecified organism; J96.21 Acute and chronic respiratory failure with hypoxia; R53.2 Functional quadriplegia; J69.0 Pneumonitis due to inhalation of food and vomit; E44.0 Moderate protein-calorie malnutrition; E87.1 Hypo-osmolality and hyponatremia; I69.351 Hemiplegia and hemiparesis following cerebral infarction affecting right dominant side; I42.1 Obstructive hypertrophic cardiomyopathy; I48.91 Unspecified atrial fibrillation; E03.9 Hypothyroidism, unspecified; E11.9 Type 2 diabetes mellitus without complications; K21.9 Gastro-esophageal reflux disease without esophagitis; R62.7 Adult failure to thrive; R53.1 Weakness; J38.6 Stenosis of larynx; I10 Essential (primary) hypertension; E78.00 Pure hypercholesterolemia, unspecified; R53.81 Other malaise; E78.5 Hyperlipidemia, unspecified; Z88.8 Allergy status to other drugs, medicaments and biological substances; Z79.899 Other long term (current) drug therapy; Z79.01 Long term (current) use of anticoagulants; Z79.4 Long term (current) use of insulin; Z68.21 Body mass index [BMI] 21.0-21.9, adult; Z93.1 Gastrostomy status; Z96.1 Presence of intraocular lens; Z74.01 Bed confinement status; I69.320 Aphasia following cerebral infarction; Z98.41 Cataract extraction status, right eye; Z98.51 Tubal ligation status; I95.9 Hypotension, unspecified
CPT/HCPCS: 36415; 36416; 36600; 70491; 71045; 74230; 80048; 80053; 80076; 80200; 80202; 81001; 82805; 83735; 84100; 85025; 85610; 85730; 86850; 86900; 86901; 87070; 87077; 87186; 87205; 94002; 94003; 94640; 94760; 97139; C9113; J1630; J1650; J1815; J2250; J2543; J2704; J2920; J3010; J3260; J3370; J3490; J7070; J7620; J7999; Q9967